=== PATIENT | female | born 2000 | race Caucasian/White ===

== ENCOUNTER 2025-08-29 06:16 | Day surgery (SDC) | payer BC ==
[2025-08-27 14:52] VITALS: BMI 43.5
[2025-08-29] MEDS ORDERED: AFRIN NASAL MIST 15 ML BOT ONE (08:03)
[2025-08-29] MEDS ORDERED: PROPOFOL 20 ML ONE ×2 (08:46→09:14)
[2025-08-29] MEDS ORDERED: Lidocaine 1% PF 5 ML VIAL ONE (08:47)
[2025-08-29] MEDS ORDERED: Ondansetron PF 4 MG/2 ML Vial ONE (08:48)
[2025-08-29] MEDS ORDERED: SUCCINYLCHOLINE/SOD CL,ISO/PF 200 MG/10 ML SYRINGE FS ONE (08:49)
[2025-08-29] MEDS ORDERED: Lidocaine 1% w/Epinephrine 1:200K 30 ML VIAL ONE (08:52)
[2025-08-29] MEDS ORDERED: Bacitracin 1 PK ONE (08:52)
[2025-08-29 08:53] LABS: BHCG - Serum Negative (NEGATIVE); Pregs Control Background? CLEAR/WHITE (CLR/WHITE); Pregs Control Bar Appear? YES (CONTROL BAR)
[2025-08-29] MEDS ORDERED: Ferric Subsulfate 8 ML TOPICAL SOLN ONE (09:16)
[2025-08-29] MEDS ORDERED: Oxymetazoline HCl 0.05% (15 ML) ONE (09:20)
[2025-08-29] MEDS ORDERED: Sevoflurane 250 ML INH ANEST BOTTLE ONE (09:34)
[2025-08-29] MEDS ORDERED: Hydrocodone-Acetamin 15 ML UDCUP ONE (10:37)
== END 2025-08-29 11:30 | disposition home or self-care (01) ==
LOC: CSHSDC 06:16
PROVIDERS: ATTEND Otolaryngology Plastic Surgery within the Head & Neck
PROC: 0CTPXZZ Resection of Tonsils, External Approach (ICD-10-PCS; principal; 2025-08-29)
PROC: 095L8ZZ Destruction of Nasal Turbinate, Via Natural or Artificial Opening Endoscopic (ICD-10-PCS; principal; 2025-08-29)
PROC: 09SM4ZZ Reposition Nasal Septum, Percutaneous Endoscopic Approach (ICD-10-PCS; principal; 2025-08-29)
PROC: 0CTQXZZ Resection of Adenoids, External Approach (ICD-10-PCS; principal; 2025-08-29)
DX: J34.2 Deviated nasal septum (principal); J03.90 Acute tonsillitis, unspecified; J35.3 Hypertrophy of tonsils with hypertrophy of adenoids; J34.3 Hypertrophy of nasal turbinates; J32.9 Chronic sinusitis, unspecified; G47.30 Sleep apnea, unspecified; E78.00 Pure hypercholesterolemia, unspecified; Z91.040 Latex allergy status; Z88.2 Allergy status to sulfonamides; Z88.5 Allergy status to narcotic agent
CPT/HCPCS: 84703; 88304; J1010; J1100; J2405; J2704; J3010